=== PATIENT | male | born 1990 | race Caucasian/White ===

== ENCOUNTER 2021-03-11 11:53 | Emergency (ER) | payer OTHER, SELFPAY ==
[2021-03-11] MEDS ORDERED: traMADol HCl 50 MG TAB ONE (12:30)
== END 2021-03-11 12:37 | disposition home or self-care (01) ==
LOC: BURERS 11:53
DX: S61.002A Unspecified open wound of left thumb without damage to nail, initial encounter (principal); F17.210 Nicotine dependence, cigarettes, uncomplicated; W26.0XXA Contact with knife, initial encounter
CPT/HCPCS: 99282